=== PATIENT | male | born 2000 | race African-American/Black ===

== ENCOUNTER 2019-11-03 16:34 | Emergency (ER) | payer SELFPAY ==
[2019-11-03] MEDS ORDERED: Lidocaine 1% (PF) 30 ML VIAL ONE (17:13)
--- NOTE | 2019-11-03 17:35 | RAD ---
LEFT FOREARM TWO VIEW: History: Dog bite. Comparison: None. FINDINGS: No fracture. No malalignment. There is anterior medial laceration and soft tissue swelling. No radiop aque foreign object is appreciated. IMPRESSION: No acute osseous abnormality. No radiopaque foreign object. POS: HOME
== END 2019-11-03 18:55 | disposition home or self-care (01) ==
LOC: ERS 16:34
DX: S51.852A Open bite of left forearm, initial encounter (principal); S01.511A Laceration without foreign body of lip, initial encounter; Y04.8XXA Assault by other bodily force, initial encounter; W54.0XXA Bitten by dog, initial encounter
CPT/HCPCS: 12051; J2001